=== PATIENT | female | born 1980 | race Caucasian/White ===

== ENCOUNTER 2016-10-08 05:31 | Inpatient (IN) | payer MEDICAID ==
[~2016-10-08] VITALS: Ht 157.5 cm; Wt 78.5 kg
[~2016-10-08 05:31] MED LIST: PREN1TAB62 PO
[2016-10-08 06:00] VITALS: BP 119/70; PULSE 83; RESP 18
[2016-10-08] MEDS ORDERED: NITR-58 PO (06:03)
[2016-10-08] MEDS ORDERED: ACYC200C2 PO (06:28)
--- NOTE | 2016-10-08 06:42 | TRIAGE ---
OB Triage Datetime Report Generated by CPN: 10/08/2016 06:42 Datetime: 10/08/2016 06:30 Stage of : OB Triage Datetime: 10/08/2016 06:20 Stage of : OB Triage Labor Evaluation Frequency: 10 Monitor Mode: External Duration (sec)2399: 60 Quality: Moderate Pattern: Normal: <= 5 Contractions in 10 Minutes Resting Tone [place]: Relaxed Heart Rate FHR Baseline Rate: 140 Monitor Mode: External US FHR Baseline Changes: No Baseline Change Variability: Moderate 6-25 bpm Accelerations: 15X15 Decelerations: None Category: Category I Vaginal Exam Dilatation (cms): 4.0 Effacement (%): 70 Station: -2 Exam By: Damir Mckeon Membrane Status: Intact Amniotic Fluid Amount: None Vaginal Bleeding: Scant Cervix, Consistency: Soft Cervix, Position: Midposition Presentation 'A': Cephalic Datetime: 10/08/2016 06:06 Membrane Status: Intact Datetime: 10/08/2016 05:37 Time of Arrival: 10/08/2016 05:25 EGA: 38.5 Arrived By: Wheelchair Arrived From: Home Chief Complaint: w/ c/o ucs Movement: Present Contractions: Irregular Time Contractions Began: 10/08/2016 03:00 Contractions: Q40 Rupture of Membranes: Denies Vaginal Bleeding: None Vaginal Discharge: Denies Recent Sexual Intercouse: Denies Abdominal Trauma: Not Applicable Patient Complaints: Contractions Time Provider Notified: 10/08/2016 06:30 Provider Notified: Dr Mitchell Initial Plan: DANUTA WADE
--- NOTE | 2016-10-08 06:44 | HP ---
Date/Time of Note Date/Time of Note DATE: 10/08/16 TIME: 06:44 OB - History Hx of Present Free Text/Dictation 38+wks GA Labor Care: Good Care Ultrasounds: Normal mid trimester US Obstetrical Complications: None Medical Complications: None Past Family/Social History * Past Medical, Surgical, Family and Obstetric Histories reviewed from chart. OB Admission Exam Vital Signs Vital Signs Vital Signs Date Time Temp Pulse Resp B/P Pulse Ox O2 Delivery O2 Flow Rate FiO2 10/08/16 06:00 98.0 83 18 119/70 Room Air Physical Exam Abdomen: WNL Extremities: Normal Cervical Dilatation: 4cm Effacement: 75% Station: -1 Membranes: Intact Heart Rate: 140's Accelerations: Accelerations Present Decelerations: No Decelerations Varibility: Moderate Contractions on Admission: < 5 Minutes Apart OB Assessment/Plan Reason for admission: observation Plan: Expectant Management DADA MARIEE M.D. October 08, 2016 06:44
[2016-10-08] MEDS ORDERED: LACTATED RINGER'S 1,000 ML IV PRN (07:00)
[2016-10-08] MEDS ORDERED: OXYTOCIN 30 UNITS/LR 500 ML IV PRN ×2 (07:00→13:30)
[2016-10-08] MEDS ORDERED: BUTORPHANOL 2 MG INJ IV PRN (07:00)
[2016-10-08] MEDS ORDERED: OXYTOCIN 30 UNITS/LR 500 ML IV SCH ×2 (07:00)
[2016-10-08] MEDS ORDERED: LIDOCAINE 1% (MPF) 30 ML INJ INJ PRN (07:00)
[2016-10-08] MEDS ORDERED: METHYLERGONOVINE 0.2 MG INJ IM PRN ×2 (07:00→13:30)
[2016-10-08] MEDS ORDERED: MISOPROSTOL 200 MCG TAB PR PRN ×2 (07:00→13:30)
[2016-10-08] MEDS ORDERED: AMPICILLIN 2 GM/NS (PMX) 100 ML IV ONE (07:00)
[2016-10-08] MEDS ORDERED: CARBOPROST 250 MCG INJ IM PRN ×2 (07:00→13:30)
[2016-10-08 07:49] LABS: ADD SCAN DIFF NO
[2016-10-08 07:52] LABS: BASOPHILS % 0.3 % (0.0-2.0); EOSINOPHILS # 0.1 10^3/ul (0.0-0.5); EOSINOPHILS % 0.6 % (0.0-7.0); HEMATOCRIT 36.6 % (37.0-47.0); HEMOGLOBIN 12.8 g/dl (12.0-16.0); LYMPHOCYTES # 1.9 10^3/ul (0.8-2.9); LYMPHOCYTES % 23.3 % (15.0-51.0); MEAN CORPUSCULAR HEMOGLOBIN 30.7 pg (29.0-33.0); MEAN CORPUSCULAR VOLUME 87.8 fl (82.0-101.0); MEAN PLATELET VOLUME 10.3 fl (7.4-10.4); MONOCYTE # 0.6 10^3/ul (0.3-0.9); MONOCYTES % 7.9 % (0.0-11.0); NEUTROPHIL # 5.4 10^3/ul (1.6-7.5); NEUTROPHILS % 67.5 % (39.0-77.0); PLATELET COUNT 229 10^3/UL (140-415); RED BLOOD COUNT 4.17 10^6/ul (4.20-5.40); RED CELL DISTRIBUTION WIDTH 13.2 % (11.5-14.5)
--- NOTE | 2016-10-08 07:52 | RADRPT ---
PROCEDURE: Obstetrical ultrasound, limited. CLINICAL INDICATION: Pelvic pain. TECHNIQUE: Multiple sonographic images of the pelvis were obtained using transabdominal technique . Images were obtained with osborn scale and color Doppler. The images were reviewed on a PACS works tation. COMPARISON: No prior studies are available for comparison. FINDINGS: There is a single living intrauterine gestation with the fetus in a vertex presentation. hear t tones of 137 beats per minute are identified. The placenta is fundal in location, grade 2-3. The re is no evidence of placenta previa or abruption. Measurements were made in order to determine age. The results are as follows: BPD =9.10 cm HC =31.00 cm AC =34.50 cm FL =7.00 cm. Estimated gestational age of approximately 36 weeks and 3 days. The estimated date of delivery is 11/02/2016. The EFW = 3148 +/- 472 grams. Estimated weight percentage equals 29.5%. IMPRESSION: Single viable intrauterine gestation of approximately 36 weeks and 3 days, with an ultrasound NILE of 11/02/2016. .Dexter Brewer MD, MD Date Time Electronically viewed and signed by .Dexter Brewer MD, MD on 10/08/2016 07:52 .T/
[2016-10-08] MEDS: LACTATED RINGER'S 1,000 ML IV SCH ×3 (07:53→22:34)
[2016-10-08 08:11] LABS: INR 0.9; PARTIAL THROMBOPLASTIN TIME 25.7 Sec (25.0-35.0); PROTIME 12.1 Sec (12.2-14.2); PT RATIO 0.9
[2016-10-08] MEDS: AMPICILLIN 1 GM/NS (PMX) 50 ML IV SCH ×2 (11:51→17:10)
[2016-10-08] MEDS ORDERED: FENTAnyl 2MCG/ML-ROPIV 0.2% 100 ML ONE (12:01)
[2016-10-08] MEDS ORDERED: FENTAnyl 2MCG/ML-ROPIV 0.2% 100 ML BAG EPI SCH (12:30)
[2016-10-08] MEDS ORDERED: NALOXONE (0.4 MG/ML) INJ IV PRN (12:30)
[2016-10-08] MEDS: LACTATED RINGER'S 1,000 ML IV* SCH ×2 (13:23→21:23)
--- NOTE | 2016-10-08 13:23 | LDN ---
Date/Time of Note Date/Time of Note DATE: 10/08/16 TIME: 13:21 Delivery Summary 7 para 4 at 38+5 weeks of gestation Weeks of Gestation Baby's weight 6 lbs. 12 oz. 3055 g Placenta Delivered: Spontaneously Meconium: none Episiotomy: No Anesthesia type: Epidural Estimated blood loss: 200 Sponge & Needle done & correct: Yes All needle counts correct: Yes Any foreign bodies felt in the: No Problems: Infant Delivery Information Sex Sex: male Apgars 1 Minute: 8 5 Minute: 9 Suctioning Nose & mouth suctioned at dilshad: Yes Umbilical Cord Umbilical cord with: 3 Vessels Cord presentations: no nuchal cord Cord Blood was obtained: Yes Copies To: CC: SUSY MOODY MD, BAHAREH MD October 08, 2016 13:23
[2016-10-08 13:27] LABS: BARBITURATES NEGATIVE (NEGATIVE); BENZODIAZEPINES NEGATIVE (NEGATIVE); CANNABINOIDS NEGATIVE (NEGATIVE); COCAINE NEGATIVE (NEGATIVE); OPIATES NEGATIVE (NEGATIVE)
[2016-10-08] MEDS ORDERED: BENZOCAINE 20% 56 ML SPRAY TOP PRN (13:30)
[2016-10-08] MEDS ORDERED: IBUPROFEN 600 MG TAB PO PRN (13:30)
[2016-10-08] MEDS ORDERED: WITCH HAZEL/GLYCERIN PAD PR PRN (13:30)
[2016-10-08] MEDS ORDERED: ACETAMINOPHEN 325 MG TAB PO PRN ×2 (13:30)
[2016-10-08] MEDS ORDERED: MAGNESIUM HYDROXIDE 30ML CUP PO PRN (13:30)
[2016-10-08] MEDS ORDERED: SENNA/DOCUSATE NA (8.6MG/50MG) TAB PO PRN (13:30)
[2016-10-08] MEDS ORDERED: ONDANSETRON 4 MG INJ IV PRN (13:30)
[2016-10-08] MEDS ORDERED: LANOLIN 7 GM TUBE TOP PRN (13:30)
[2016-10-08] MEDS ORDERED: DIBUCAINE 1% 30 GM OINT PR PRN (13:30)
[2016-10-08] MEDS: OXYTOCIN 30 UNITS/LR 500 ML IV SCH ×2 (13:35→17:11)
[2016-10-08 15:45] VITALS: BP 111/65; PULSE 80; RESP 18
[2016-10-08 16:15] VITALS: BP 111/65; PULSE 68; RESP 18
[2016-10-08] MEDS: IBUPROFEN 600 MG TAB PO PRN (17:01)
[2016-10-08 19:45] VITALS: BP 107/52; PULSE 80; RESP 18
[2016-10-09] MEDS: LACTATED RINGER'S 1,000 ML IV* SCH ×2 (05:23→17:28)
[2016-10-09] MEDS: LACTATED RINGER'S 1,000 ML IV SCH (05:34)
[2016-10-09] MEDS: IBUPROFEN 600 MG TAB PO PRN ×4 (05:44→20:25)
[2016-10-09 08:30] VITALS: BP 114/64; PULSE 68; RESP 18
[2016-10-09 08:34] LABS: ADD SCAN DIFF NO
[2016-10-09 08:47] LABS: BASOPHILS % 0.2 % (0.0-2.0); EOSINOPHILS # 0.1 10^3/ul (0.0-0.5); EOSINOPHILS % 0.7 % (0.0-7.0); HEMATOCRIT 32.6 % (37.0-47.0); HEMOGLOBIN 11.2 g/dl (12.0-16.0); LYMPHOCYTES # 1.5 10^3/ul (0.8-2.9); LYMPHOCYTES % 14.1 % (15.0-51.0); MEAN CORPUSCULAR HEMOGLOBIN 30.5 pg (29.0-33.0); MEAN CORPUSCULAR HGB CONC 34.4 g/dl (32.0-37.0); MEAN CORPUSCULAR VOLUME 88.8 fl (82.0-101.0); MEAN PLATELET VOLUME 10.5 fl (7.4-10.4); MONOCYTE # 0.6 10^3/ul (0.3-0.9); NEUTROPHIL # 8.4 10^3/ul (1.6-7.5); NEUTROPHILS % 78.5 % (39.0-77.0); PLATELET COUNT 194 10^3/UL (140-415); RED BLOOD COUNT 3.67 10^6/ul (4.20-5.40); RED CELL DISTRIBUTION WIDTH 13.3 % (11.5-14.5); WHITE BLOOD COUNT 10.7 10^3/ul (4.8-10.8)
[2016-10-09 16:17] VITALS: BP 113/71; PULSE 64; RESP 18
[2016-10-09 20:25] VITALS: BP 114/67; PULSE 71; RESP 18
[2016-10-10 04:09] VITALS: BP 85/50; PULSE 67; RESP 18
[2016-10-10] MEDS: IBUPROFEN 600 MG TAB PO PRN ×2 (05:42→15:11)
[2016-10-10 09:00] VITALS: BP 114/79; PULSE 72; RESP 19
[2016-10-10] MEDS ORDERED: MEASLES,MUMPS,RUBELLA VACCINE INJ SC* ONE (09:00)
--- NOTE | 2016-10-10 10:13 | DS ---
Date/Time of Note Date/Time of Note DATE: 10/10/16 TIME: 10:13 Discharge Summary Admission/Discharge Info Admit Date/Time October 08, 2016 at 06:40 Discharge Date/Time Final Diagnosis term preg Patient Condition: Serious Hospital Course unremarkable Home Meds Reported Medications Acyclovir* (Acyclovir*) 200 Mg Capsule, 200 MG PO TID, CAP 10/08/16 Vit-Iron Fumarate-FA ( Vitamin Tablet) 1 Each Tablet, 1 TAB PO DAILY, TAB 03/27/15 Discontinued Reported Medications Nitrofurantoin Monohyd Macrocr* (Macrobid*) 100 Mg Capsr, 100 MG PO BID, CAP 10/08/16 Primary Care Provider Care Physician No Primary SUSY MOODY MD October 10, 2016 10:13
--- NOTE | 2016-10-10 11:41 | RADRPT ---
PROCEDURE: US venous lower extremities bilaterally. CLINICAL INDICATION: Lower extremity pain. The patient is recently . TECHNIQUE: Multiple longitudinal and transverse images of the bilateral lower extremity veins were obtained with osborn scale and color Doppler imaging. 2D grayscale imaging with compression, color D oppler flow, and augmentation was performed. The calf veins were interrogated as well. COMPARISON: None available. FINDINGS: The common femoral, superficial femoral, and popliteal veins are compressible bilaterally. There is normal color Doppler flow within the vessels. Normal waveforms are visualized and there is normal response to augmentation. The calf veins are visualized and are equally unremarkable. IMPRESSION: 1. No evidence of deep vein thrombosis in the lower extremities bilaterally. RPTAT: GG .Wayne Win MD, MD Date Time Electronically viewed and signed by .Wayne Win MD, MD on 10/10/2016 11:40 .P/
[2016-10-10] MEDS ORDERED: DIPHTH/TET/ACEL PERTUSS (ADULT) 0.5 ML VIAL IM* ONE (13:00)
== END 2016-10-10 19:01 | disposition home or self-care (01) | DRG 775 ==
LOC: OBT 05:31 → L-D 05:31 → OBT 06:40 → PP1 15:37
PROVIDERS: ADMIT Obstetrics & Gynecology; ATTEND Obstetrics & Gynecology
PROC: 10E0XZZ Delivery of Products of Conception, External Approach (ICD-10-PCS; principal; 2016-10-08)
DX: O80 Encounter for full-term uncomplicated delivery (principal); Z37.0 Single live birth; Z3A.38 38 weeks gestation of pregnancy
CPT/HCPCS: 62319; 76815; 80307; 85025; 85610; 85730; 86592; 86900; 86901; 87340; 90715; 93970; G0463; J0290; J2590; J3010; J7120